=== PATIENT | male | born 1985 | race Asian ===

== ENCOUNTER 2019-12-16 10:57 | Emergency (ER) | payer OTHER ==
[~2019-12-16] VITALS: Ht 160 cm; Wt 65.8 kg
[2019-12-16 11:37] LABS: PLATELET COUNT 284 K/uL (142-355)
[2019-12-16 11:50] LABS: POTASSIUM 3.8 mmol/L (3.6-5.2); SODIUM 138 mmol/L (136-145)
[2019-12-16 12:25] VITALS: BP 112/70; TEMP 99.2
== END 2019-12-16 12:25 | disposition home or self-care (01) ==
LOC: ED 10:57
PROVIDERS: Emergency Medicine
DX: K21.9 Gastro-esophageal reflux disease without esophagitis (principal)
CPT/HCPCS: 80053; 82550; 82553; 84484; 85027; 93005; 99283

== ENCOUNTER 2020-03-07 15:40 | Emergency (ER) | payer OTHER ==
[~2020-03-07] VITALS: Ht 162.6 cm; Wt 68.0 kg
[2020-03-07 15:55] VITALS: BP 107/59; TEMP 98.9
== END 2020-03-07 17:33 | disposition home or self-care (01) ==
LOC: ED 15:40
DX: S93.692A Other sprain of left foot, initial encounter (principal); S93.505A Unspecified sprain of left lesser toe(s), initial encounter; W22.8XXA Striking against or struck by other objects, initial encounter; Y92.89 Other specified places as the place of occurrence of the external cause
CPT/HCPCS: 99282

== ENCOUNTER 2020-07-11 10:53 | Emergency (ER) | payer OTHER ==
[~2020-07-11] VITALS: Ht 160 cm; Wt 58.5 kg
[2020-07-11 11:37] VITALS: BP 148/82; TEMP 98.1
== END 2020-07-11 11:37 | disposition home or self-care (01) ==
LOC: ED 10:53
DX: R11.2 Nausea with vomiting, unspecified (principal)
CPT/HCPCS: 99281

== ENCOUNTER 2020-12-20 16:14 | Emergency (ER) | payer OTHER ==
[~2020-12-20] VITALS: Ht 157.5 cm; Wt 59.0 kg
[2020-12-20 16:20] VITALS: BP 135/77; TEMP 97.2
== END 2020-12-20 17:27 | disposition home or self-care (01) ==
LOC: ED 16:14
PROC: 2W3KX1Z Immobilization of Left Finger using Splint (ICD-10-PCS; principal; 2020-12-20)
DX: S62.657A Nondisplaced fracture of middle phalanx of left little finger, initial encounter for closed fracture (principal); X50.1XXA Overexertion from prolonged static or awkward postures, initial encounter; Y92.89 Other specified places as the place of occurrence of the external cause
CPT/HCPCS: 99282; 99283